=== PATIENT | male | born 1955 | race Caucasian/White ===

== ENCOUNTER → 2016-11-11 | Outpatient (CLI) | payer BC ==
[~2016-11-11] MED LIST: HABITROL DPS21 MG TD; LOTENSIN10 MG PO; TYLENOL DPS325 MG PO; ZANTAC DPS150 MG PO; ZOCOR DPS20 MG PO
== END | disposition home or self-care (01) ==
LOC: PTH.S 08:00 → RAD.S 09:02
DX: C34.12 Malignant neoplasm of upper lobe, left bronchus or lung (principal); R91.1 Solitary pulmonary nodule; Z98.890 Other specified postprocedural states